=== PATIENT | male | born 1985 | race Caucasian/White ===

== ENCOUNTER 2024-06-29 13:14 | Observation (INO) ==
[2024-06-29 13:22] VITALS: BMI 35.2
--- NOTE | 2024-06-29 13:39 | DR.GENAD ---
HPI Time Seen Time Seen by Provider: 06/29/24 13:38 PCP Primary Care Physician: HERMAN Complaint/Symptoms Chief Complaint:: PT states he was d/c from here Sunday with Colitis. Pt states he is having the same pain in his lower abdomen as before. Denies n/v. Pt states he's had diarrhea. Pt is currently on Flagyl. Nurses notes reviewed Nurses Notes Review: Yes Source History Provided: Patient and Family Member Mode of Arrival Mode of Arrival: Ambulatory Timing Onset of Chief Complaint: 06/29/24 Came on: Gradually Duration Duration: Constant Duration: Days Location Location: mid and right lower quadrant Severity Severity: Mild Modifying Factors Worsens:: palp Improves:: leaving alone Other History Other History: admitted last week with colitis, seen by Dr. Jones then, hernia seen [facility] Past Medical History: Yes Past Medical History: Gout Past Medical History Comment: Colitis Past Surgical History: Yes Surgical History: Other Past Surgical History Comment: Hernia repair Family History History of Family Medical Conditions: Yes Family Medical History: Diabetes Mellitus, Cancer, [place] and Coronary Artery Disease Social History Alcohol Use: Rarely Do you use any recreational Drugs:: No Lives With: Mom Lives Where: Home Infectious screening Have you traveled outside the country in the last 6 months?: No Isolation: Standard ROS Review of Systems All Other Systems: Reviewed and Negative PE Vital Signs Vitals: Vital Signs Temperature 97.8 F Temperature 97.8 F Pulse Rate 80 Pulse Rate 82 Respiratory Rate 21 Respiratory Rate 21 Respiratory Rate 22 Respiratory Rate 18 Blood Pressure 118/55 Blood Pressure 134/65 O2 Sat by Pulse Oximetry 96 O2 Sat by Pulse Oximetry 98 General Limitations: No Limitations General Appearance: Alert Head Head Exam: Normal Inspection Eyes Eye exam: Normal Appearance ENT ENT Exam: Normal Exam External Ear Exam: Normal External Inspection Nose Exam: Normal Nose Exam Neck Neck Exam: Normal Inspection Chest Chest Inspection: Normal Inspection Respiratory Respiratory Exam: Normal Lung Sounds Bilat Cardiovascular Cardiovascular Exam: Regular Rate Abdominal Exam Abdominal Exam: Other Abdominal Tenderness: Other (mild tenderness mid and RLL, nl external genitalia) Extremities Extremities Exam: Normal Inspection Neurologic Neurological Exam: Alert, Oriented X3 and CN II-XII Intact; negative Motor Sensory Deficit Skin Skin Exam: Warm and Normal Color MDM Differential Diagnosis Differential Diagnosis: colitis, uti, appendicitis COURSE Treatment Treatment: as per ER notes Reevaluation 1st: Improved Consultation Called: 16:05 Call Returned: 16:06 Consultation Comments: Karen called and answered at 3:50 Education/Counseling Education/Counseling: Patient ROR Labs Reviewed 06/29/24 14:10 06/29/24 14:10 Laboratory: WBC 12.7 X10^3/uL (3.6-10.0) H 06/29/24 14:10 RBC 5.40 X10^6/uL (4.7-6.0) 06/29/24 14:10 Hgb 15.7 g/dL (13.5-18.0) 06/29/24 14:10 Hct 44.5 % (42.0-54.0) 06/29/24 14:10 MCV 82.4 fL (80.0-100.0) 06/29/24 14:10 MCH 29.1 pg (27.0-34.0) 06/29/24 14:10 MCHC 35.3 g/dL (33.0-35.0) H 06/29/24 14:10 RDW 12.9 % (11.6-16.5) 06/29/24 14:10 Plt Count 203 X10^3/uL (150.0-450.0) 06/29/24 14:10 MPV 8.4 fL (7.4-11.0) 06/29/24 14:10 Neut % (Auto) 69.7 % (42.0-75.0) 06/29/24 14:10 Lymph % (Auto) 19.6 % (21.0-51.0) L 06/29/24 14:10 [place] % (Auto) 8.1 % (0.0-13.0) 06/29/24 14:10 Eos % (Auto) 1.9 % (0.9-2.9) 06/29/24 14:10 Baso % (Auto) 0.7 % (0.2-1.0) 06/29/24 14:10 Neut # (Auto) 8.9 x10^3/uL (2.2-4.8) H 06/29/24 14:10 Lymph # (Auto) 2.5 X10^3/uL (1.3-2.9) 06/29/24 14:10 [place] # (Auto) 1.0 x10^3/uL (0.3-0.8) H 06/29/24 14:10 Eos # (Auto) 0.2 x10^3/uL (0.0-0.2) 06/29/24 14:10 Baso # (Auto) 0.1 X10^3/uL (0.0-0.1) 06/29/24 14:10 Absolute Nucleated RBC 0.1 /100WBC 06/29/24 14:10 Sodium 143 mmol/L (136-145) 06/29/24 14:10 Corrected Sodium TNP 06/29/24 14:10 Potassium 3.8 mmol/L (3.5-5.1) 06/29/24 14:10 Chloride 106 mmol/L (98-107) 06/29/24 14:10 Carbon Dioxide 30.3 mmol/L (21-32) 06/29/24 14:10 BUN 15 mg/dL (7-18) 06/29/24 14:10 Creatinine 0.95 mg/dL (0.70-1.30) 06/29/24 14:10 Est GFR (MDRD) Af Amer > 60 (>60) 06/29/24 14:10 Est GFR (MDRD) Non-Af > 60 (>60) 06/29/24 14:10 Glucose 85 mg/dL (65-99) 06/29/24 14:10 Calcium 9.0 mg/dL (8.5-10.1) 06/29/24 14:10 Corrected Calcium TNP 06/29/24 14:10 Total Bilirubin 0.30 mg/dL (0.2-1.0) 06/29/24 14:10 AST 81 Units/L (15-37) H 06/29/24 14:10 ALT 59 Units/L (12-78) 06/29/24 14:10 Alkaline Phosphatase 92 Units/L (46-116) 06/29/24 14:10 Total Protein 7.0 g/dL (6.4-8.2) 06/29/24 14:10 Albumin 3.5 g/dL (3.4-5.0) 06/29/24 14:10 Globulin 3.5 g/dL (2.5-4.5) 06/29/24 14:10 Albumin/Globulin Ratio 1.0 Ratio (1.1-2.1) L 06/29/24 14:10 Specimen Type Clean catch urine 06/29/24 14:53 Urine Color Yellow (YELLOW) 06/29/24 14:53 Urine Appearance Clear (CLEAR) 06/29/24 14:53 Urine pH 7.0 (5.0 - 8.0) 06/29/24 14:53 Ur Specific [place] 1.010 (1.000-1.030) 06/29/24 14:53 Urine Protein Negative (NEGATIVE) 06/29/24 14:53 Urine Glucose (UA) Negative (NEGATIVE) 06/29/24 14:53 Urine Ketones Negative (NEGATIVE) 06/29/24 14:53 Urine Blood Negative (NEGATIVE) 06/29/24 14:53 Urine Nitrite Negative (NEGATIVE) 06/29/24 14:53 Urine Bilirubin Negative (NEGATIVE) 06/29/24 14:53 Urine Urobilinogen Normal (NORMAL) 06/29/24 14:53 Ur Leukocyte Esterase 1+ (NEGATIVE) 06/29/24 14:53 Urine RBC None seen /HPF (0-3) 06/29/24 14:53 Urine WBC 0-2 /HPF (0-5) 06/29/24 14:53 Ur Squamous Epith Cells Negative /HPF (NEGATIVE) 06/29/24 14:53 Amorphous Sediment 1+ /HPF (NEGATIVE) 06/29/24 14:53 Urine Bacteria Trace /HPF (NEGATIVE) 06/29/24 14:53 Ur Culture Indicated? No/not indicated 06/29/24 14:53 Opioid Opioid Risk Tool Age (Otto box if 16-45): Yes History of Preadolescent Sexual Abuse: No Total: 1 Total Score Risk Category: Low Risk Copyright: Eladio ALVARADO predicting aberrant behaviors Discharge Plan Diagnosis Discharge Problem: Colitis, Hernia Discharge Plan Patient Disposition: ADMITTED INPATIENT Condition: Stable Prescriptions: No Action metronidazole [Flagyl] 500 mg Tablet 500 mg PO TID Health Concerns: Post Hospitalization: new medications and changes needed to prevent readmission or further decline. Pt educated and given instructions on all concerns. Plan of Treatment: Continue with present treatment and follow up plan. Pt is to keep follow up appointment as instructed and take medications as ordered. Follow ups/Referrals Follow ups/Referrals: NFD,None [Primary Care Provider] - 3 days
[2024-06-29] MEDS: NS 1,000 ML IV 1,000 ML IV SCH (14:08)
[2024-06-29] MEDS: TORADOL 15 MG VIAL IVP ONE (14:08)
[2024-06-29] MEDS: ZOSYN VIAL 3.375 GRAMS 3.375 G in NS 100 ML IV 100 ML IV ONE (14:09)
--- NOTE | 2024-06-29 14:21 | EKG ---
Test Reason : chest pain Blood Pressure : */* mmHG Vent. Rate : 74 BPM Atrial Rate : 74 BPM P-R Int : 136 ms QRS Dur : 108 ms QT Int : 386 ms P-R-T Axes : 9 55 34 degrees QTc Int : 428 ms Normal sinus rhythm Normal ECG No previous ECGs available Confirmed by Brown Gasca MD ([id number]) on 06/30/2024 7:48:10 AM Referred By: Confirmed By: Brown Gasca MD
[2024-06-29 14:31] LABS: BASOPHILS # (AUTO) 0.1 X10^3/uL (0.0-0.1); EOSINOPHILS # (AUTO) 0.2 x10^3/uL (0.0-0.2); HEMOGLOBIN 15.7 g/dL (13.5-18.0); MEAN CORPUSCULAR HEMOGLOBIN 29.1 pg (27.0-34.0); MEAN PLATELET VOLUME 8.4 fL (7.4-11.0); RED CELL DISTRIBUTION WIDTH 12.9 % (11.6-16.5)
[2024-06-29 14:34] LABS: BASOPHILS % (AUTO) 0.7 % (0.2-1.0); EOSINOPHILS % (AUTO) 1.9 % (0.9-2.9); HEMATOCRIT 44.5 % (42.0-54.0); LYMPHOCYTES # (AUTO) 2.5 X10^3/uL (1.3-2.9); LYMPHOCYTES % (AUTO) 19.6 % (21.0-51.0); MEAN CORPUSCULAR HGB CONC 35.3 g/dL (33.0-35.0); MEAN CORPUSCULAR VOLUME 82.4 fL (80.0-100.0); MONOCYTES % (AUTO) 8.1 % (0.0-13.0); NEUTROPHILS # (AUTO) 8.9 x10^3/uL (2.2-4.8); NEUTROPHILS % (AUTO) 69.7 % (42.0-75.0); PLATELET COUNT 203 X10^3/uL (150.0-450.0); WHITE BLOOD COUNT 12.7 X10^3/uL (3.6-10.0)
[2024-06-29 14:38] LABS: ALANINE AMINOTRANSFERASE 59 Units/L (12-78); ALBUMIN 3.5 g/dL (3.4-5.0); ALKALINE PHOSPHATASE 92 Units/L (46-116); ASPARTATE AMINO TRANSFERASE 81 Units/L (15-37); BLOOD UREA NITROGEN 15 mg/dL (7-18); CARBON DIOXIDE 30.3 mmol/L (21-32); CHLORIDE 106 mmol/L (98-107); CREATININE 0.95 mg/dL (0.70-1.30); GLUCOSE 85 mg/dL (65-99); POTASSIUM 3.8 mmol/L (3.5-5.1); SODIUM 143 mmol/L (136-145); eGFR NON BLACK RACES > 60 (>60)
[2024-06-29 14:57] LABS: BILIRUBIN,URINE NEGATIVE (NEGATIVE); BLOOD/HEMOGLOBIN,URINE NEGATIVE (NEGATIVE); GLUCOSE, URINE NEGATIVE (NEGATIVE); KETONES,URINE NEGATIVE (NEGATIVE); LEUKOCYTE ESTERASE ,URINE 1+ (NEGATIVE); NITRITES,URINE NEGATIVE (NEGATIVE); PROTEIN,URINE NEGATIVE (NEGATIVE); UROBILINOGEN,URINE NORMAL (NORMAL)
[2024-06-29 14:58] LABS: APPEARANCE,URINE CLEAR (CLEAR); COLOR,URINE YELLOW (YELLOW)
[2024-06-29 15:09] LABS: RBC,URINE NONE SEEN /HPF (0-3)
[2024-06-29 15:10] LABS: BACTERIA,URINE TRACE /HPF (NEGATIVE); SQUAMOUS EPITHELIAL CELL,UR NEGATIVE /HPF (NEGATIVE)
--- NOTE | 2024-06-29 15:18 | CT ---
EXAM: ABDCMEN/PELVIS WITH CON HISTORY: pain in stomach, pt recently here with colitis and was discharged (06-27-24) pt states pain is across his abdomen just below umbilical region. hx of hernia into scrotum rt side (hx of surgery for the her alan); COMPARISON: 06/25/2024 TECHNIQUE: Multiple axial images of the abdomen and pelvis were obtained from the lung bases to the pubic symphy sis after the administration of IV contrast. Dose reduction techniques including Automated Exposure Control (AEC) and adjustment of mA and kV were utilized. FINDINGS: The visualized portions of the lung bases are unremarkable . The liver, spleen, pancreas, kidneys, an d adrenal glands are unremarkable in their CT appearance. The gallbladder does appear to be contracte d.. Subtle mesenteric stranding surrounding the ascending colon subjacent to the cecum is observed l ikely on the basis of residual inflammatory changes from recent colitis. Findings are markedly impro rachel when compared to prior examination. Right-sided inguinal hernia remains present with enteric con tents entering the hernia sac.. The urinary bladder is grossly unremarkable. The bony structures ar e grossly intact. IMPRESSION: Markedly improved but persistent and subtle pericolonic stranding just distal to the level of the cec um within the ascending colon. Right-sided inguinal hernia with portions of the cecum extending into the hernia sac. THIS IS AN ELECTRONICALLY VERIFIED FINAL REPORT 06/29/2024 3:15 PM - Electronically signed by Scott Valentin MD
--- NOTE | 2024-06-29 15:38 | RAD ---
EXAM:CHEST, 1 VIEWHISTORY:cough;COMPARISON:None available.FINDINGS:The trachea is midline. The cardiac silhouette is unremarkable . The lungs are clear without focal infiltrate or effusion. The bony thorax is unremarkable.IMPRESSION:No acute cardiopulmonary disease.THIS IS AN ELECTRONICALLY VERIFIED FINAL [id number]/29/2024 3:34 PM - Electronically signed by Scott Valentin MD
[2024-06-29] MEDS: DILAUDID INJ IVP ONE (15:56)
[2024-06-29] MEDS ORDERED: CONSULT PHARMACY - POTASSIUM & MAGNESIUM XX SCH (17:00)
[2024-06-29] MEDS ORDERED: NS 1,000 ML IV 1,000 ML IV SCH (17:00)
[2024-06-29] MEDS: MAG-OX TAB PO SCH (17:10)
[2024-06-29] MEDS: K-DUR TAB 20 MEQ PO ONE (17:10)
[2024-06-29] MEDS ORDERED: BACTROBAN CREAM TOP ONE (17:43)
[2024-06-29] MEDS: MORPHINE SULFATE INJ 2 MG INJ IVP PRN (20:54)
[2024-06-29] MEDS: ZOSYN VIAL 3.375 GRAMS 3.375 G in NS 100 ML IV 100 ML IV SCH (21:49)
[2024-06-29] MEDS: NS 250 ML IV 25 ML IV PRN (21:49)
[2024-06-30 05:43] LABS: BASOPHILS # (AUTO) 0.1 X10^3/uL (0.0-0.1); BASOPHILS % (AUTO) 0.9 % (0.2-1.0); EOSINOPHILS # (AUTO) 0.2 x10^3/uL (0.0-0.2); EOSINOPHILS % (AUTO) 1.5 % (0.9-2.9); HEMATOCRIT 40.6 % (42.0-54.0); HEMOGLOBIN 14.4 g/dL (13.5-18.0); LYMPHOCYTES # (AUTO) 2.7 X10^3/uL (1.3-2.9); LYMPHOCYTES % (AUTO) 25.7 % (21.0-51.0); MEAN CORPUSCULAR HGB CONC 35.3 g/dL (33.0-35.0); MEAN CORPUSCULAR VOLUME 82.1 fL (80.0-100.0); MEAN PLATELET VOLUME 8.7 fL (7.4-11.0); MONOCYTES # (AUTO) 0.7 x10^3/uL (0.3-0.8); MONOCYTES % (AUTO) 6.8 % (0.0-13.0); NEUTROPHILS # (AUTO) 6.9 x10^3/uL (2.2-4.8); NEUTROPHILS % (AUTO) 65.1 % (42.0-75.0); PLATELET COUNT 175 X10^3/uL (150.0-450.0); RED BLOOD COUNT 4.95 X10^6/uL (4.7-6.0); RED CELL DISTRIBUTION WIDTH 13.2 % (11.6-16.5); WHITE BLOOD COUNT 10.5 X10^3/uL (3.6-10.0)
[2024-06-30 05:44] LABS: BLOOD UREA NITROGEN 15 mg/dL (7-18); CALCIUM 8.3 mg/dL (8.5-10.1); CARBON DIOXIDE 28.8 mmol/L (21-32); CHLORIDE 108 mmol/L (98-107); CREATININE 0.91 mg/dL (0.70-1.30); GLUCOSE 91 mg/dL (65-99); POTASSIUM 4.6 mmol/L (3.5-5.1); SODIUM 143 mmol/L (136-145); eGFR NON BLACK RACES > 60 (>60)
[2024-06-30 06:21] LABS: BAND NEUTROPHILS % 3 % (0-10); METAMYELOCYTES % 2
[2024-06-30 06:22] LABS: PLATELET MORPHOLOGY COMMENT NORMAL (NORMAL)
[2024-06-30 06:24] LABS: ALANINE AMINOTRANSFERASE 52 Units/L (12-78); ALBUMIN 2.7 g/dL (3.4-5.0); ALKALINE PHOSPHATASE 73 Units/L (46-116); ASPARTATE AMINO TRANSFERASE 62 Units/L (15-37); COR CA(FOR HYPOALB) 9.3 mg/dL (8.5-10.1); TOTAL PROTEIN 5.7 g/dL (6.4-8.2)
--- NOTE | 2024-06-30 07:07 | RAD ---
EXAM:KUBHISTORY:ColitisCOMPARISON: .br 06/29/2024FINDINGS:Abdominal gas pattern is nonspecific and nonobstructive. No abnormal masses or abnormal calcifications are identified. No evidence for megacolon. Regional skeleton is intact.IMPRESSION:Unremarkable KUBTHIS IS AN ELECTRONICALLY VERIFIED FINAL AOUMOZ1406/30/2024 7:03 AM - Electronically signed by Kamron Evans MD
--- NOTE | 2024-06-30 09:53 | DR.H&P ---
H&P History & Physical for Day of: H&P Date: 06/30/24 Chief Complaint Chief Complaint: abdominal pain History of Present Illness History of Present Illness: Mr Benson is a 38y/o male who was recently discharged on 06/27/24 after being treated for colitis. He reports having worsening right sided abdominal pain which was not being controlled with medication so he came to the ER for evaluation. Er work up showed CTAP consistent with colitis along Right-sided inguinal hernia with portions of the cecum extending into the hernia sac. He was started on hydration and IV Zosyn. Dr Rankin was consulted. Patient is scheduled for hernia repair tomorrow. Labs/imaging reviewed: -WBC 10.5 Hgb 14.9 Mag 2.0 K4.6 AST 62 -UA neg -Stool studies (-) -KUB: no acute changes -CXR: no acute changes Plan: continue current care with hydration and IV Zosyn. Continue pain control, anti-emetics. Follow surgery recommendations. Plan for hernia repair tomorrow. NPO after midnight. Replace electrolytes as per protocol. Monitor AM labs/i maging. Past Medical History Past Medical History: Gout Past Surgical History Surgical History: Other Family History Family Medical History: Diabetes Mellitus, Cancer, [place] and Coronary Artery Disease Social History Does patient currently use any type of tobacco product: Yes Type of Tobacco Use: Cigarettes Alcohol Use: None Drug Use: None Medications Home Medications: Home Medications Medication Instructions Recorded Confirmed Type metronidazole 500 mg tablet 500 mg PO TID 06/29/24 06/29/24 History Allergies Allergies Allergy/AdvReac Type Severity Reaction Status Date / Time codeine Allergy Verified 06/29/24 17:32 shrimp Allergy Verified 06/29/24 13:22 Labs 06/30/24 05:10 06/30/24 05:10 Labs: 06/29/24 18:58 Stool - Final Laboratory WBC 10.5 X10^3/uL (3.6-10.0) H 06/30/24 05:10 RBC 4.95 X10^6/uL (4.7-6.0) 06/30/24 05:10 Hgb 14.4 g/dL (13.5-18.0) 06/30/24 05:10 Hct 40.6 % (42.0-54.0) L 06/30/24 05:10 MCV 82.1 fL (80.0-100.0) 06/30/24 05:10 MCH 29.0 pg (27.0-34.0) 06/30/24 05:10 MCHC 35.3 g/dL (33.0-35.0) H 06/30/24 05:10 RDW 13.2 % (11.6-16.5) 06/30/24 05:10 Plt Count 175 X10^3/uL (150.0-450.0) 06/30/24 05:10 Plt Count Comment Adequate (ADEQUATE) 06/30/24 05:10 MPV 8.7 fL (7.4-11.0) 06/30/24 05:10 Neut % (Auto) 65.1 % (42.0-75.0) 06/30/24 05:10 Lymph % (Auto) 25.7 % (21.0-51.0) 06/30/24 05:10 [place] % (Auto) 6.8 % (0.0-13.0) 06/30/24 05:10 Eos % (Auto) 1.5 % (0.9-2.9) 06/30/24 05:10 Baso % (Auto) 0.9 % (0.2-1.0) 06/30/24 05:10 Neut # (Auto) 6.9 x10^3/uL (2.2-4.8) H 06/30/24 05:10 Lymph # (Auto) 2.7 X10^3/uL (1.3-2.9) 06/30/24 05:10 [place] # (Auto) 0.7 x10^3/uL (0.3-0.8) 06/30/24 05:10 Eos # (Auto) 0.2 x10^3/uL (0.0-0.2) 06/30/24 05:10 Baso # (Auto) 0.1 X10^3/uL (0.0-0.1) 06/30/24 05:10 Absolute Nucleated RBC 0.2 /100WBC 06/30/24 05:10 Total Counted 100 06/30/24 05:10 Neutrophils % (Manual) 64 % (39-76) 06/30/24 05:10 Band Neutrophils % 3 % (0-10) 06/30/24 05:10 Lymphocytes % (Manual) 22 % (13-43) 06/30/24 05:10 Monocytes % (Manual) 9 % (4-9) 06/30/24 05:10 Metamyelocytes % 2 06/30/24 05:10 Plt Morphology Comment Normal (NORMAL) 06/30/24 05:10 RBC Morphology Normal (NORMAL) 06/30/24 05:10 Sodium 143 mmol/L (136-145) 06/30/24 05:10 Corrected Sodium TNP 06/30/24 05:10 Potassium 4.6 mmol/L (3.5-5.1) 06/30/24 05:10 Chloride 108 mmol/L (98-107) H 06/30/24 05:10 Carbon Dioxide 28.8 mmol/L (21-32) 06/30/24 05:10 BUN 15 mg/dL (7-18) 06/30/24 05:10 Creatinine 0.91 mg/dL (0.70-1.30) 06/30/24 05:10 Est GFR (MDRD) Af Amer > 60 (>60) 06/30/24 05:10 Est GFR (MDRD) Non-Af > 60 (>60) 06/30/24 05:10 Glucose 91 mg/dL (65-99) 06/30/24 05:10 Calcium 8.3 mg/dL (8.5-10.1) L 06/30/24 05:10 Corrected Calcium 9.3 mg/dL (8.5-10.1) 06/30/24 05:10 Magnesium 2.0 mg/dL (2.0-2.9) 06/30/24 05:10 Total Bilirubin 0.10 mg/dL (0.2-1.0) L 06/30/24 05:10 AST 62 Units/L (15-37) H 06/30/24 05:10 ALT 52 Units/L (12-78) 06/30/24 05:10 Alkaline Phosphatase 73 Units/L (46-116) 06/30/24 05:10 Total Protein 5.7 g/dL (6.4-8.2) L 06/30/24 05:10 Albumin 2.7 g/dL (3.4-5.0) L 06/30/24 05:10 Globulin 3.0 g/dL (2.5-4.5) 06/30/24 05:10 Albumin/Globulin Ratio 0.9 Ratio (1.1-2.1) L 06/30/24 05:10 Specimen Type Clean catch urine 06/29/24 14:53 Urine Color Yellow (YELLOW) 06/29/24 14:53 Urine Appearance Clear (CLEAR) 06/29/24 14:53 Urine pH 7.0 (5.0 - 8.0) 06/29/24 14:53 Ur Specific [place] 1.010 (1.000-1.030) 06/29/24 14:53 Urine Protein Negative (NEGATIVE) 06/29/24 14:53 Urine Glucose (UA) Negative (NEGATIVE) 06/29/24 14:53 Urine Ketones Negative (NEGATIVE) 06/29/24 14:53 Urine Blood Negative (NEGATIVE) 06/29/24 14:53 Urine Nitrite Negative (NEGATIVE) 06/29/24 14:53 Urine Bilirubin Negative (NEGATIVE) 06/29/24 14:53 Urine Urobilinogen Normal (NORMAL) 06/29/24 14:53 Ur Leukocyte Esterase 1+ (NEGATIVE) 06/29/24 14:53 Urine RBC None seen /HPF (0-3) 06/29/24 14:53 Urine WBC 0-2 /HPF (0-5) 06/29/24 14:53 Ur Squamous Epith Cells Negative /HPF (NEGATIVE) 06/29/24 14:53 Amorphous Sediment 1+ /HPF (NEGATIVE) 06/29/24 14:53 Urine Bacteria Trace /HPF (NEGATIVE) 06/29/24 14:53 Ur Culture Indicated? No/not indicated 06/29/24 14:53 Stl C. diff Tox B Gene Negative (NEGATIVE) 06/29/24 18:58 Stl C. diff [id number] Presumptive negative (NEGATIVE) 06/29/24 18:58 Review of Systems Constitutional: No Symptoms Reported Eyes: No Symptoms Reported ENT: No Symptoms Reported Respiratory: No Symptoms Reported Cardiovascular: No Symptoms Reported Gastrointestinal: Nausea, Abdominal Pain and Diarrhea Genitourinary: No Symptoms Reported Musculoskeletal: No Symptoms Reported Skin: No Symptoms Reported Neurological: No Symptoms Reported Physical Exam Vital Signs: Vital Signs Temperature 98.1 F Temperature 98.0 F Pulse Rate [Left Radial] 66 Pulse Rate [Left Radial] 63 Respiratory Rate 19 Respiratory Rate 18 Respiratory Rate 16 Respiratory Rate 19 Respiratory Rate 18 Blood Pressure [Left Arm] 123/70 Blood Pressure [Left Arm] 110/59 O2 Sat by Pulse Oximetry 97 O2 Sat by Pulse Oximetry 99 Oriented: Normal Throat: Normal Respiratory: Clear Throughout Cardiovascular: Normal Auscultation: Bowel Sounds: Normal Tenderness: RLQ, Suprapubic and Mild Skin: Normal Musculoskeletal: Normal Psychiatric: Normal Affect: Normal Speech Pattern: Clear and Appropriate Assessment/Plan (1) Acute colitis: Status: Acute (2) Inguinal hernia: Qualifiers: Laterality: unilateral Obstruction and gangrene presence: without obstruction or gangrene Recurrence: recurrent Qualified Code(s): K40.91 - Unilateral inguinal hernia, without obstruction or gangrene, recurrent Status: Acute (3) Hypomagnesemia: Status: Acute Review H&P Reviewed: Yes Patient was examined?: Yes
[2024-06-30] MEDS: HIBICLENS WASH EXT ONE (20:34)
[2024-07-01 06:24] LABS: BASOPHILS # (AUTO) 0.1 X10^3/uL (0.0-0.1); BASOPHILS % (AUTO) 0.7 % (0.2-1.0); EOSINOPHILS # (AUTO) 0.1 x10^3/uL (0.0-0.2); EOSINOPHILS % (AUTO) 1.2 % (0.9-2.9); HEMATOCRIT 41.8 % (42.0-54.0); HEMOGLOBIN 14.6 g/dL (13.5-18.0); LYMPHOCYTES # (AUTO) 2.8 X10^3/uL (1.3-2.9); LYMPHOCYTES % (AUTO) 27.6 % (21.0-51.0); MEAN CORPUSCULAR HEMOGLOBIN 28.8 pg (27.0-34.0); MEAN CORPUSCULAR VOLUME 82.3 fL (80.0-100.0); MEAN PLATELET VOLUME 9.4 fL (7.4-11.0); MONOCYTES # (AUTO) 0.6 x10^3/uL (0.3-0.8); MONOCYTES % (AUTO) 5.6 % (0.0-13.0); NEUTROPHILS # (AUTO) 6.5 x10^3/uL (2.2-4.8); NEUTROPHILS % (AUTO) 64.9 % (42.0-75.0); PLATELET COUNT 208 X10^3/uL (150.0-450.0); RED BLOOD COUNT 5.08 X10^6/uL (4.7-6.0); RED CELL DISTRIBUTION WIDTH 13.2 % (11.6-16.5); WHITE BLOOD COUNT 10.1 X10^3/uL (3.6-10.0)
[2024-07-01 06:51] LABS: BAND NEUTROPHILS % 1 % (0-10); PLATELET MORPHOLOGY COMMENT NORMAL (NORMAL)
[2024-07-01 06:54] LABS: BLOOD UREA NITROGEN 8 mg/dL (7-18); CALCIUM 8.8 mg/dL (8.5-10.1); CARBON DIOXIDE 26.8 mmol/L (21-32); CHLORIDE 106 mmol/L (98-107); CREATININE 0.87 mg/dL (0.70-1.30); GLUCOSE 84 mg/dL (65-99); POTASSIUM 4.4 mmol/L (3.5-5.1); SODIUM 141 mmol/L (136-145); eGFR NON BLACK RACES > 60 (>60)
[2024-07-01 07:06] LABS: ALANINE AMINOTRANSFERASE 58 Units/L (12-78); ALBUMIN 3.2 g/dL (3.4-5.0); ALKALINE PHOSPHATASE 78 Units/L (46-116); ASPARTATE AMINO TRANSFERASE 52 Units/L (15-37); COR CA(FOR HYPOALB) 9.4 mg/dL (8.5-10.1); MAGNESIUM 1.9 mg/dL (2.0-2.9); TOTAL PROTEIN 6.5 g/dL (6.4-8.2)
--- NOTE | 2024-07-01 08:28 | RAD ---
EXAMINATION:CHEST, 1 VIEWHISTORY:SURGERY-HERNIA REPAIR; GOUT, COLITIS HERNIA REPAIR .COMPARISON STUDY:06/29/2024TECHNIQUE:A single view of the chest was obtained.FINDINGS:. Heart size is normal. No acute infiltrates. There is no pneumothorax. Hilar and mediastinal structures and bony structures are unremarkable. .IMPRESSION:No acute process in the chest.THIS IS AN ELECTRONICALLY VERIFIED FINAL [id number]/01/2024 8:24 AM - Electronically signed by Nilay Wright MD
--- NOTE | 2024-07-01 08:38 | DR.PROGNOT ---
HOSPITAL PROGRESS NOTE Progress Note for Day of: Progress Note Date: 07/01/24 Chief Complaint Chief Complaint: Right groin pain is much better, no abdominal pain, no nausea or vomiting. White count is down 10.1. Electrolytes are normal and liver function test are normal now. Patient is afebrile. Abdomen is soft flat nontender and right inguinal hernia is completely reducible. Patient could be discharged and will follow him in the office as scheduled. Future colonoscopy and repair of recurrent right inguinal hernia. Past Medical Family Social History Past Med/Fam/Surg Hx: No changes since H&P Allergies: Allergies codeine Allergy (Verified 06/29/24 17:32) itching shrimp Allergy (Verified 06/29/24 13:22) Vital Signs Vital Signs: Vital Signs Temperature 97.9 F Pulse Rate [Left Radial] 62 Respiratory Rate 20 Respiratory Rate 20 Respiratory Rate 20 Respiratory Rate 20 Respiratory Rate 15 Blood Pressure [Left Arm] 135/70 O2 Sat by Pulse Oximetry 98 Physical Exam Oriented: Normal Eyes: Normal Ear: Normal Nose: Normal Cardiovascular: Normal GI:Auscultation: Normal GI: Tenderness: Other (Soft flat nontender abdomen with reducible right inguinal hernia.) Skin: Normal Musculoskeletal: Normal Psychiatric: Normal Affect: Normal Speech Pattern: Clear Laboratory and Diagnostics 07/01/24 05:23 07/01/24 05:23 Labs: 06/29/24 14:18 Blood Blood Culture - Preliminary 06/29/24 14:10 Blood Blood Culture - Preliminary 06/29/24 18:58 Stool - Final Laboratory WBC 10.1 X10^3/uL (3.6-10.0) H 07/01/24 05:23 RBC 5.08 X10^6/uL (4.7-6.0) 07/01/24 05:23 Hgb 14.6 g/dL (13.5-18.0) 07/01/24 05:23 Hct 41.8 % (42.0-54.0) L 07/01/24 05:23 MCV 82.3 fL (80.0-100.0) 07/01/24 05:23 MCH 28.8 pg (27.0-34.0) 07/01/24 05:23 MCHC 35.0 g/dL (33.0-35.0) 07/01/24 05:23 RDW 13.2 % (11.6-16.5) 07/01/24 05:23 Plt Count 208 X10^3/uL (150.0-450.0) 07/01/24 05:23 Plt Count Comment Adequate (ADEQUATE) 07/01/24 05:23 MPV 9.4 fL (7.4-11.0) 07/01/24 05:23 Neut % (Auto) 64.9 % (42.0-75.0) 07/01/24 05:23 Lymph % (Auto) 27.6 % (21.0-51.0) 07/01/24 05:23 [place] % (Auto) 5.6 % (0.0-13.0) 07/01/24 05:23 Eos % (Auto) 1.2 % (0.9-2.9) 07/01/24 05:23 Baso % (Auto) 0.7 % (0.2-1.0) 07/01/24 05:23 Neut # (Auto) 6.5 x10^3/uL (2.2-4.8) H 07/01/24 05:23 Lymph # (Auto) 2.8 X10^3/uL (1.3-2.9) 07/01/24 05:23 [place] # (Auto) 0.6 x10^3/uL (0.3-0.8) 07/01/24 05:23 Eos # (Auto) 0.1 x10^3/uL (0.0-0.2) 07/01/24 05:23 Baso # (Auto) 0.1 X10^3/uL (0.0-0.1) 07/01/24 05:23 Absolute Nucleated RBC 0.1 /100WBC 07/01/24 05:23 Total Counted 100 07/01/24 05:23 Neutrophils % (Manual) 65 % (39-76) 07/01/24 05:23 Band Neutrophils % 1 % (0-10) 07/01/24 05:23 Lymphocytes % (Manual) 29 % (13-43) 07/01/24 05:23 Monocytes % (Manual) 4 % (4-9) 07/01/24 05:23 Eosinophils % (Manual) 1 % (0-6) 07/01/24 05:23 Metamyelocytes % 2 06/30/24 05:10 Plt Morphology Comment Normal (NORMAL) 07/01/24 05:23 RBC Morphology Normal (NORMAL) 07/01/24 05:23 Sodium 141 mmol/L (136-145) 07/01/24 05:23 Corrected Sodium TNP 07/01/24 05:23 Potassium 4.4 mmol/L (3.5-5.1) 07/01/24 05:23 Chloride 106 mmol/L (98-107) 07/01/24 05:23 Carbon Dioxide 26.8 mmol/L (21-32) 07/01/24 05:23 BUN 8 mg/dL (7-18) 07/01/24 05:23 Creatinine 0.87 mg/dL (0.70-1.30) 07/01/24 05:23 Est GFR (MDRD) Af Amer > 60 (>60) 07/01/24 05:23 Est GFR (MDRD) Non-Af > 60 (>60) 07/01/24 05:23 Glucose 84 mg/dL (65-99) 07/01/24 05:23 Calcium 8.8 mg/dL (8.5-10.1) 07/01/24 05:23 Corrected Calcium 9.4 mg/dL (8.5-10.1) 07/01/24 05:23 Magnesium 1.9 mg/dL (2.0-2.9) L 07/01/24 05:23 Total Bilirubin 0.20 mg/dL (0.2-1.0) 07/01/24 05:23 AST 52 Units/L (15-37) H 07/01/24 05:23 ALT 58 Units/L (12-78) 07/01/24 05:23 Alkaline Phosphatase 78 Units/L (46-116) 07/01/24 05:23 Total Protein 6.5 g/dL (6.4-8.2) 07/01/24 05:23 Albumin 3.2 g/dL (3.4-5.0) L 07/01/24 05:23 Globulin 3.3 g/dL (2.5-4.5) 07/01/24 05:23 Albumin/Globulin Ratio 1.0 Ratio (1.1-2.1) L 07/01/24 05:23 Specimen Type Clean catch urine 06/29/24 14:53 Urine Color Yellow (YELLOW) 06/29/24 14:53 Urine Appearance Clear (CLEAR) 06/29/24 14:53 Urine pH 7.0 (5.0 - 8.0) 06/29/24 14:53 Ur Specific [place] 1.010 (1.000-1.030) 06/29/24 14:53 Urine Protein Negative (NEGATIVE) 06/29/24 14:53 Urine Glucose (UA) Negative (NEGATIVE) 06/29/24 14:53 Urine Ketones Negative (NEGATIVE) 06/29/24 14:53 Urine Blood Negative (NEGATIVE) 06/29/24 14:53 Urine Nitrite Negative (NEGATIVE) 06/29/24 14:53 Urine Bilirubin Negative (NEGATIVE) 06/29/24 14:53 Urine Urobilinogen Normal (NORMAL) 06/29/24 14:53 Ur Leukocyte Esterase 1+ (NEGATIVE) 06/29/24 14:53 Urine RBC None seen /HPF (0-3) 06/29/24 14:53 Urine WBC 0-2 /HPF (0-5) 06/29/24 14:53 Ur Squamous Epith Cells Negative /HPF (NEGATIVE) 06/29/24 14:53 Amorphous Sediment 1+ /HPF (NEGATIVE) 06/29/24 14:53 Urine Bacteria Trace /HPF (NEGATIVE) 06/29/24 14:53 Ur Culture Indicated? No/not indicated 06/29/24 14:53 Stl C. diff Tox B Gene Negative (NEGATIVE) 06/29/24 18:58 Stl C. diff [id number] Presumptive negative (NEGATIVE) 06/29/24 18:58 Assessment and Plan 1: Moderate right side colitis had subsided. 2: Right inguinal hernia is completely reduced. To follow as an outpatient and arrange for future colonoscopy and repair of the recurrent right inguinal hernia. Problem Patient Problems: Patient Problems Colitis (Acute) K52.9 Hernia (Acute) K46.9
[2024-07-01 08:45] VITALS: RESP 18
[2024-07-01 10:24] VITALS: BP 120/78; PULSE 67; TEMP 97.5; O2SAT 99
== END 2024-07-01 09:20 | disposition home or self-care (01) ==
LOC: ER 13:14 → MED/SURG 13:14
PROVIDERS: ADMIT Internal Medicine; ATTEND Internal Medicine
DX: Z72.0 Tobacco use; R10.84 Generalized abdominal pain; K40.91 Unilateral inguinal hernia, without obstruction or gangrene, recurrent; R05.9 Cough, unspecified; E83.42 Hypomagnesemia; R07.89 Other chest pain; K52.89 Other specified noninfective gastroenteritis and colitis